=== PATIENT | male | born 1990 | race American Indian/Alaskan Native ===

== ENCOUNTER 2016-12-11 20:12 | Emergency (ER) | payer OTHER ==
[2016-12-11 21:22] LABS: Basophils % (Auto) 0.7 % (0.0-1.8); Eosinophils % (Auto) 0.5 % (0.0-4.3); Hematocrit 47.5 % (35.5-45.6); Hemoglobin 15.1 gm/dl (11.8-15.2); Mean Corpuscular HGB Conc 32 % (32-34); Mean Corpuscular Hemoglobin 27 pg (28-32); Mean Corpuscular Volume 85 fl (84-94); Platelet Count 234 K/mm3 (140-440); Red Blood Count 5.57 M/mm3 (3.65-5.03); Red Cell Distribution Width 14.6 % (13.2-15.2); White Blood Count 9.6 K/mm3 (4.5-11.0)
[2016-12-11 21:52] LABS: Alanine Aminotransferase 28 units/L (7-56); Albumin 4.4 g/dL (3.9-5); Albumin/Globulin Ratio 1.5 %; Alkaline Phosphatase 51 units/L (35-129); Anion Gap 19 mmol/L; BUN/Creatinine Ratio 10; Blood Urea Nitrogen 9 mg/dL (9-20); Calcium 8.7 mg/dL (8.4-10.2); Carbon Dioxide 27 mmol/L (22-30); Chloride 109.2 mmol/L (98-107); Glucose 87 mg/dL (75-100); Potassium 4.8 mmol/L (3.6-5.0); Sodium 150 mmol/L (137-145); Total Protein 7.4 g/dL (6.3-8.2)
--- NOTE | 2016-12-11 22:08 | Emergency Department Report ---
History of Present Illness - General Chief Complaint: Overdose Stated Complaint: POSS OD Time Seen by Provider: 12/11/16 20:36 Source: family, EMS Mode of arrival: Ambulatory Limitations: Altered Mental Status - History of Present Illness Initial Comments: 26-year-old male with a past medical history alcohol abuse, bipolar disorder, and anger issues presents to the hospital with suicidal overdose attempt. Patient has been drinking beer all day. His girlfriend witnessed him ingesting 20 of her 1 mg clonazepam tablets at 5 PM. Patient is angry since he arrived and intermittently uncooperative with staff. Patient threatened to leave the ED repeatedly and adamant about not staying in the hospital. He is not forthcoming with history therefore information obtained from his girlfriend at the bedside. She reports he's been depressed lately. His grandmother recently . They recently broke up, and patient was diagnosed with lung cancer 2 days ago after workup at a hospital in [place]. Patient is supposed to follow-up tomorrow for further instructions regarding this diagnosis and workup. She states patient is not on any medication currently. He drinks alcohol daily with history of withdrawal tremors but no reports of seizures. - Related Data Allergies Allergy/AdvReac Type Severity Reaction Status Date / Time No Known Allergies Allergy Unverified 12/11/16 20:58 ED Review of Systems ROS: Stated complaint: POSS OD Other details as noted in HPI Comment: Unobtainable due to pts medical conditions (lack of patient cooperation) ED Physical Exam - General Limitations: Altered Mental Status - Other Other exam information: General: No limitations, patient is alert in no acute distress Head exam: Atraumatic, normocephalic Eyes exam: Normal appearance. ENT: Moist mucous membrane, normal oropharynx Neck exam: Normal inspection, full range of motion, no meningismus nontender Respiratory exam: Clear to auscultation bilateral, no wheezes, rales, crackles Cardiovascular: Normal rate and rhythm, normal heart sounds Abdomen: Soft, nondistended, and nontender, with normal bowel sounds, no rebound, or guarding Extremity: Full range of motion normal inspection no deformity Back: Normal Inspection, full range of motion, no tenderness Neurologic: Alert, oriented x3, cranial nerves intact, no motor or sensory deficit Psychiatric: Angry mood, belligerent Skin: Superficial right brow 0.5 cm laceration. Wound cleaned and Steri-Strips placed by ENGINEERED WOOD DESIGNER Course Vital Signs 12/11/16 12/11/16 12/12/16 20:36 20:46 00:00 Temperature 98 F 98.8 F Pulse Rate 69 70 67 Respiratory 16 18 17 Rate Blood Pressure 117/73 98/41 [Right] O2 Sat by Pulse 99 97 Oximetry 12/12/16 12/12/16 12/12/16 01:23 02:00 03:00 Temperature 98.8 F Pulse Rate 70 65 63 Respiratory 18 18 20 Rate Blood Pressure 117/73 97/44 100/43 [Right] O2 Sat by Pulse 99 95 Oximetry 12/12/16 04:00 Temperature Pulse Rate 63 Respiratory 19 Rate Blood Pressure 92/46 [Right] O2 Sat by Pulse 96 Oximetry - Consultations Consultation #1: 12/11/16 20:50 RN discussed case with poison control discussion copy and pasted below Per poison control pt to have a cbc, cmp, asa, tylenol (repeat in 4 hours), tox screen, etoh, ekg, and cardiac monitoring for 6 hours. if pt is stable, he my be d/c'd and medically cleared after the 6 hours. pt is not to have haldol, geodon or zyprexa d/t risk of seizures. Romazicon only to be given if pt does not have hx of chronic benzo use. ED Medical Decision Making - Lab Data Result diagrams: 12/11/16 21:07 12/11/16 21:07 Lab Results 12/11/16 12/11/16 12/11/16 Range/Units 21:07 21:07 21:07 WBC 9.6 (4.5-11.0) K/mm3 RBC 5.57 H (3.65-5.03) M/mm3 Hgb 15.1 (11.8-15.2) gm/dl Hct 47.5 H (35.5-45.6) % MCV 85 (84-94) fl MCH 27 L (28-32) pg MCHC 32 (32-34) % RDW 14.6 (13.2-15.2) % Plt Count 234 (140-440) K/mm3 Lymph % (Auto) 25.7 (13.4-35.0) % [place] % (Auto) 4.9 (0.0-7.3) % Eos % (Auto) 0.5 (0.0-4.3) % Baso % (Auto) 0.7 (0.0-1.8) % Lymph # 2.5 (1.2-5.4) K/mm3 [place] # 0.5 (0.0-0.8) K/mm3 Eos # 0.0 (0.0-0.4) K/mm3 Baso # 0.1 (0.0-0.1) K/mm3 Seg Neutrophils % 68.2 (40.0-70.0) % Seg Neutrophils # 6.5 (1.8-7.7) K/mm3 Sodium 150 H (137-145) mmol/L Potassium 4.8 (3.6-5.0) mmol/L Chloride 109.2 H (98-107) mmol/L Carbon Dioxide 27 (22-30) mmol/L Anion Gap 19 mmol/L BUN 9 (9-20) mg/dL Creatinine 0.9 (0.8-1.5) mg/dL Estimated GFR > 60 ml/min BUN/Creatinine Ratio 10 % Glucose 87 (75-100) mg/dL POC Glucose (70-105) Calcium 8.7 (8.4-10.2) mg/dL Total Bilirubin 0.30 (0.1-1.2) mg/dL AST 44 H (5-40) units/L ALT 28 (7-56) units/L Alkaline Phosphatase 51 (35-129) units/L Total Creatine Kinase (55-170) units/L Total Protein 7.4 (6.3-8.2) g/dL Albumin 4.4 (3.9-5) g/dL Albumin/Globulin Ratio 1.5 % Urine Color (Yellow) Urine Turbidity (Clear) Urine pH (5.0-7.0) Ur Specific [place] (1.003-1.030) Urine Protein (Negative) mg/dL Urine Glucose (UA) (Negative) mg/dL Urine Ketones (Negative) mg/dL Urine Blood (Negative) Urine Nitrite (Negative) Urine Bilirubin (Negative) Urine Urobilinogen (<2.0) mg/dL Ur Leukocyte Esterase (Negative) Urine WBC (Auto) (0.0-6.0) /HPF Urine RBC (Auto) (0.0-6.0) /HPF Urine Mucus /HPF Salicylates < 0.3 L (2.8-20.0) mg/dL Urine Opiates Screen Urine Methadone Screen Acetaminophen (10.0-30.0) ug/mL Ur Barbiturates Screen Ur Phencyclidine Scrn Ur Amphetamines Screen U Benzodiazepines Scrn Urine Cocaine Screen U Marijuana (THC) Screen Drugs of Abuse Note Plasma/Serum Alcohol (0-0.07) gm% 12/11/16 12/11/16 12/11/16 Range/Units 21:07 21:07 21:59 WBC (4.5-11.0) K/mm3 RBC (3.65-5.03) M/mm3 Hgb (11.8-15.2) gm/dl Hct (35.5-45.6) % MCV (84-94) fl MCH (28-32) pg MCHC (32-34) % RDW (13.2-15.2) % Plt Count (140-440) K/mm3 Lymph % (Auto) (13.4-35.0) % [place] % (Auto) (0.0-7.3) % Eos % (Auto) (0.0-4.3) % Baso % (Auto) (0.0-1.8) % Lymph # (1.2-5.4) K/mm3 [place] # (0.0-0.8) K/mm3 Eos # (0.0-0.4) K/mm3 Baso # (0.0-0.1) K/mm3 Seg Neutrophils % (40.0-70.0) % Seg Neutrophils # (1.8-7.7) K/mm3 Sodium (137-145) mmol/L Potassium (3.6-5.0) mmol/L Chloride (98-107) mmol/L Carbon Dioxide (22-30) mmol/L Anion Gap mmol/L BUN (9-20) mg/dL Creatinine (0.8-1.5) mg/dL Estimated GFR ml/min BUN/Creatinine Ratio % Glucose (75-100) mg/dL POC Glucose 78 (70-105) Calcium (8.4-10.2) mg/dL Total Bilirubin (0.1-1.2) mg/dL AST (5-40) units/L ALT (7-56) units/L Alkaline Phosphatase (35-129) units/L Total Creatine Kinase (55-170) units/L Total Protein (6.3-8.2) g/dL Albumin (3.9-5) g/dL Albumin/Globulin Ratio % Urine Color (Yellow) Urine Turbidity (Clear) Urine pH (5.0-7.0) Ur Specific [place] (1.003-1.030) Urine Protein (Negative) mg/dL Urine Glucose (UA) (Negative) mg/dL Urine Ketones (Negative) mg/dL Urine Blood (Negative) Urine Nitrite (Negative) Urine Bilirubin (Negative) Urine Urobilinogen (<2.0) mg/dL Ur Leukocyte Esterase (Negative) Urine WBC (Auto) (0.0-6.0) /HPF Urine RBC (Auto) (0.0-6.0) /HPF Urine Mucus /HPF Salicylates (2.8-20.0) mg/dL Urine Opiates Screen Urine Methadone Screen Acetaminophen < 15.0 (10.0-30.0) ug/mL Ur Barbiturates Screen Ur Phencyclidine Scrn Ur Amphetamines Screen U Benzodiazepines Scrn Urine Cocaine Screen U Marijuana (THC) Screen Drugs of Abuse Note Plasma/Serum Alcohol 0.19 H (0-0.07) gm% 12/11/16 12/11/16 12/12/16 Range/Units 23:30 23:30 01:33 WBC (4.5-11.0) K/mm3 RBC (3.65-5.03) M/mm3 Hgb (11.8-15.2) gm/dl Hct (35.5-45.6) % MCV (84-94) fl MCH (28-32) pg MCHC (32-34) % RDW (13.2-15.2) % Plt Count (140-440) K/mm3 Lymph % (Auto) (13.4-35.0) % [place] % (Auto) (0.0-7.3) % Eos % (Auto) (0.0-4.3) % Baso % (Auto) (0.0-1.8) % Lymph # (1.2-5.4) K/mm3 [place] # (0.0-0.8) K/mm3 Eos # (0.0-0.4) K/mm3 Baso # (0.0-0.1) K/mm3 Seg Neutrophils % (40.0-70.0) % Seg Neutrophils # (1.8-7.7) K/mm3 Sodium (137-145) mmol/L Potassium (3.6-5.0) mmol/L Chloride (98-107) mmol/L Carbon Dioxide (22-30) mmol/L Anion Gap mmol/L BUN (9-20) mg/dL Creatinine (0.8-1.5) mg/dL Estimated GFR ml/min BUN/Creatinine Ratio % Glucose (75-100) mg/dL POC Glucose (70-105) Calcium (8.4-10.2) mg/dL Total Bilirubin (0.1-1.2) mg/dL AST (5-40) units/L ALT (7-56) units/L Alkaline Phosphatase (35-129) units/L Total Creatine Kinase 754 H (55-170) units/L Total Protein (6.3-8.2) g/dL Albumin (3.9-5) g/dL Albumin/Globulin Ratio % Urine Color Straw (Yellow) Urine Turbidity Clear (Clear) Urine pH 5.0 (5.0-7.0) Ur Specific [place] 1.013 (1.003-1.030) Urine Protein <15 mg/dl (Negative) mg/dL Urine Glucose (UA) Neg (Negative) mg/dL Urine Ketones Neg (Negative) mg/dL Urine Blood Neg (Negative) Urine Nitrite Neg (Negative) Urine Bilirubin Neg (Negative) Urine Urobilinogen < 2.0 (<2.0) mg/dL Ur Leukocyte Esterase Neg (Negative) Urine WBC (Auto) < 1.0 (0.0-6.0) /HPF Urine RBC (Auto) < 1.0 (0.0-6.0) /HPF Urine Mucus Few /HPF Salicylates (2.8-20.0) mg/dL Urine Opiates Screen Presumptive negative Urine Methadone Screen Presumptive negative Acetaminophen (10.0-30.0) ug/mL Ur Barbiturates Screen Presumptive negative Ur Phencyclidine Scrn Presumptive negative Ur Amphetamines Screen Presumptive negative U Benzodiazepines Scrn Presumptive positive Urine Cocaine Screen Presumptive positive U Marijuana (THC) Screen Presumptive negative Drugs of Abuse Note Disclamer Plasma/Serum Alcohol (0-0.07) gm% 12/12/16 Range/Units 05:13 WBC (4.5-11.0) K/mm3 RBC (3.65-5.03) M/mm3 Hgb (11.8-15.2) gm/dl Hct (35.5-45.6) % MCV (84-94) fl MCH (28-32) pg MCHC (32-34) % RDW (13.2-15.2) % Plt Count (140-440) K/mm3 Lymph % (Auto) (13.4-35.0) % [place] % (Auto) (0.0-7.3) % Eos % (Auto) (0.0-4.3) % Baso % (Auto) (0.0-1.8) % Lymph # (1.2-5.4) K/mm3 [place] # (0.0-0.8) K/mm3 Eos # (0.0-0.4) K/mm3 Baso # (0.0-0.1) K/mm3 Seg Neutrophils % (40.0-70.0) % Seg Neutrophils # (1.8-7.7) K/mm3 Sodium (137-145) mmol/L Potassium (3.6-5.0) mmol/L Chloride (98-107) mmol/L Carbon Dioxide (22-30) mmol/L Anion Gap mmol/L BUN (9-20) mg/dL Creatinine (0.8-1.5) mg/dL Estimated GFR ml/min BUN/Creatinine Ratio % Glucose (75-100) mg/dL POC Glucose (70-105) Calcium (8.4-10.2) mg/dL Total Bilirubin (0.1-1.2) mg/dL AST (5-40) units/L ALT (7-56) units/L Alkaline Phosphatase (35-129) units/L Total Creatine Kinase (55-170) units/L Total Protein (6.3-8.2) g/dL Albumin (3.9-5) g/dL Albumin/Globulin Ratio % Urine Color (Yellow) Urine Turbidity (Clear) Urine pH (5.0-7.0) Ur Specific [place] (1.003-1.030) Urine Protein (Negative) mg/dL Urine Glucose (UA) (Negative) mg/dL Urine Ketones (Negative) mg/dL Urine Blood (Negative) Urine Nitrite (Negative) Urine Bilirubin (Negative) Urine Urobilinogen (<2.0) mg/dL Ur Leukocyte Esterase (Negative) Urine WBC (Auto) (0.0-6.0) /HPF Urine RBC (Auto) (0.0-6.0) /HPF Urine Mucus /HPF Salicylates (2.8-20.0) mg/dL Urine Opiates Screen Urine Methadone Screen Acetaminophen < 15.0 (10.0-30.0) ug/mL Ur Barbiturates Screen Ur Phencyclidine Scrn Ur Amphetamines Screen U Benzodiazepines Scrn Urine Cocaine Screen U Marijuana (THC) Screen Drugs of Abuse Note Plasma/Serum Alcohol (0-0.07) gm% - EKG Data -: EKG Interpreted by Me (sinus rate [address] elevation or T-wave inversions) - EKG Data When compared to previous EKG there are: previous EKG unavailable - Radiology Data Radiology results: report reviewed (chest x-ray: No acute findings) - Medical Decision Making Patient's initial Tylenol level was performed approximate 4 hours after reported injection and is normal. Repeat has been ordered by ingestion of Klonopin was witnessed by girlfriend and no other substance ingestion reported. Patient has been monitored for 6 hours and did have some hypotension but also IV benzos here in the ED, Benadryl, and required physical restraints for cooperation. Patient received banana bag and normal saline with improvement in blood pressure. Patient has a history of daily alcohol use and is at risk for alcohol withdrawal. While at rest patient's blood pressures in the 90s. Pt arrouses easily and seems to be more cooperative. after completion of 1 L normal systolic pressure is 102 and patient is medically cleared. - Differential Diagnosis suicidal attempt, depression, psychosis, alcohol intoxication, drug abuse Critical Care Time: No Critical care attestation.: If time is entered above; I have spent that time in minutes in the direct care of this critically ill patient, excluding procedure time. ED Disposition Clinical Impression: Alcohol abuse, Suicide attempt by substance overdose, Cocaine abuse, Medical clearance for psychiatric admission, Laceration of right eyebrow Disposition: [id number]/[id number] PSY HOSP/PSY UNIT Is pt being admited?: No Condition: Stable Time of Disposition: 06:12 (awaiting acceptance)
[2016-12-11] MEDS ORDERED: BENADRYL IV ONE (22:33)
[2016-12-11] MEDS ORDERED: ATIVAN IV ONE (22:33)
[2016-12-11] MEDS ORDERED: VITAMIN B-1 100 MG, FOLVITE 1 MG, INFUVITE 10 ML in NACL 0.9% 1000 ML 1,000 ML IV ONE (22:33)
--- NOTE | 2016-12-11 23:20 | XRay Report ---
FINAL REPORT PROCEDURE: XR CHEST ROUTINE 2V TECHNIQUE: PA and lateral chest radiographs were obtained. CPT 93356 HISTORY: recent diagnosis of lung cancer. Patient's girlfriend stated patient diagnosed w/ lung cancer x 2 days. COMPARISON: No prior studies are available for comparison. FINDINGS: Heart: Normal. Mediastinum/Vessels: Normal. Lungs/Pleural space: Normal. Bony thorax: No acute osseous abnormality. Other: IMPRESSION: No acute cardiopulmonary disease. Recommend correlation with prior exams .
[2016-12-12 00:45] LABS: Urine Drugs of Abuse Note Disclamer
[2016-12-12 01:04] LABS: Bilirubin,Urine NEG (Negative); Blood,Urine NEG (Negative); Ketones,Urine NEG (Negative); Leukocyte Esterase,Urine NEG (Negative); Mucus,Urine FEW /HPF; Nitrite,Urine NEG (Negative); Protein,Urine <15 mg/dL mg/dL (Negative); RBC,Urine < 1.0 /HPF (0.0-6.0); Urobilinogen,Urine < 2.0 mg/dL (<2.0); WBC,Urine < 1.0 /HPF (0.0-6.0)
[2016-12-12] MEDS ORDERED: NACL 0.9% 1000 ML 1,000 ML IV ONE ×2 (03:14→06:10)
[2016-12-12] MEDS ORDERED: BOOSTRIX IM ONE (05:26)
[2016-12-12] MEDS ORDERED: MOTRIN PO ONE (09:04)
--- NOTE | 2016-12-12 13:52 | Consultation ---
History of Present Illness - Reason for Consult Consult date: 12/12/16 Reason for consult: Mental Health Evaluation Requesting physician: BERTO DUNNE - Chief Complaint Chief complaint: "I want to go home" - History of Present Psychiatric Illness 26-year-old male with a past medical history alcohol abuse, bipolar disorder, and anger issues presents to the hospital with suicidal overdose attempt. Today patient is irritable and uncooperative during the assessment. He kept asking about going home and denying a suicide attempt. He did admit to taking multiple Klonopin pills prior to his admission to [facility]. He stated that he was "stressed. " He stated that his girlfriend broke up with him and his grandmother recently. He would not discuss his elevated alcohol serum. He stated being hospitalized several times for depression in [place]. He denies SI/HI's. After several attempts to discuss his current overdose, the patient refused to answer anymore questions. Patient's alcohol serum 0.19 and positive for cocaine and benzos. Medications and Allergies Allergies Allergy/AdvReac Type Severity Reaction Status Date / Time No Known Allergies Allergy Unverified 12/11/16 20:58 Home Medications Medication Instructions Recorded Confirmed Last Taken Type No Known Home Medications [No 12/13/16 12/13/16 Unknown History Reported Home Medications] Past psychiatric history - Past Medical History Past Medical History: No medical history Past Surgical History: No surgical history - past Psychiatric treatment and history Psych: Depression psychiatric treatment history: Multiple inpatient psy settings. Denies a fam psy hx. - Social History Social history: lives with family, other ([employer] graduate) Mental Status Exam - Vital signs Last Vital Signs Temp 98.8 F 12/12/16 01:23 Pulse 75 12/12/16 08:00 Resp 18 12/12/16 09:32 BP 95/53 12/12/16 08:00 Pulse Ox 99 12/12/16 09:32 - Exam Narrative exam: MSE: Appearance: irritable, uncooperative Behavior: regular eye contact Speech: regular rate and tone Mood: "okay" withdrawn Affect: labile Thought Process: circumstantial Thought Content: denies SI/HI's and AVH's Motor Activity: lying in bed Cognition: A/O x3 Insight: variable Judgment: variable Results Result Diagrams: 12/11/16 21:07 12/11/16 21:07 Abnormal lab results 12/11/16 12/11/16 12/11/16 Range/Units 21:07 21:07 21:07 RBC 5.57 H (3.65-5.03) M/mm3 Hct 47.5 H (35.5-45.6) % MCH 27 L (28-32) pg Sodium 150 H (137-145) mmol/L Chloride 109.2 H (98-107) mmol/L AST 44 H (5-40) units/L Total Creatine Kinase (55-170) units/L Salicylates < 0.3 L (2.8-20.0) mg/dL Plasma/Serum Alcohol (0-0.07) gm% 12/11/16 12/12/16 Range/Units 21:07 01:33 RBC (3.65-5.03) M/mm3 Hct (35.5-45.6) % MCH (28-32) pg Sodium (137-145) mmol/L Chloride (98-107) mmol/L AST (5-40) units/L Total Creatine Kinase 754 H (55-170) units/L Salicylates (2.8-20.0) mg/dL Plasma/Serum Alcohol 0.19 H (0-0.07) gm% All other labs normal. Assessment and Plan Assessment and plan: Impression: Historical Dx: Depression. Unspecified Mood DO. Alcohol Use DO. Substance Use DO (cocaine). Today patient is irritable and uncooperative during the assessment. Patient overdosed on Klonopin. Positive for cocaine and benzos. DDx: R/O Bipolar, MDD, Substance Induced Mood DO Recommendation/plan: Continue 1013 with placement to inpatient psy services. Gather collateral information to help determine proper treatment.
--- NOTE | 2016-12-13 15:53 | Progress Note ---
Subjective - Reason for Consult Reason for consult: recent OD - Chief Complaint Chief complaint: Still minimizing his recent situation. Requesting to go home. Collateral info and review of chart suggests that he requires some coordinated treatment, which hasn't been established yet. He is denying symptoms of psychosis or depression; however, recent presentation suggests otherwise. Denies SI currently. Denies that the recent OD was in an attempt to end his life. Mental Status Exam - Vital signs Last Vital Signs Temp 97.7 F 12/13/16 10:16 Pulse 66 12/13/16 10:16 Resp 18 12/13/16 10:16 BP 108/61 12/13/16 10:16 Pulse Ox 100 12/13/16 10:16 - Exam Orientation: time, place Affect: anxious Mood: anxious Thought content: other (NO SI/HI/AVH) Thought Process: Intact Perceptions: none Speech: normal rate and pattern Concentration: focused Motor activity: normal Level of consciousness: alert Memory: Intact Sleep Symptoms: None Interaction: guarded Assessment and Plan Recent Overdose on a benzodiazapine with +UDS for various illicit substance and an elevated BAL in the context of loss of GM as well as a possible Lung Cancer diagnosis. Plan: Coordinate mental health services to ensure he can get help for the loss and cope more effectively with the recent reported diagnosis of Lung Cancer. This may involve him going inpatient v coordinating outpatient services in his community. Current he will remain on a 1013 until that is completed.
--- NOTE | 2016-12-14 10:39 | Progress Note ---
Subjective - Reason for Consult Consult date: 12/14/16 Reason for consult: Psychiatry Follow-up - Chief Complaint Chief complaint: "I want to go home" 26-year-old male with a past medical history alcohol abuse and depression. Today patient is calm and cooperative during the assessment. He denies having lung cancer and stated that his grandmother didn't . He stated that a older woman from a halfway in [place] . He stated they had a close relationship. The patient does not want to take any medication at this time. Per collateral information from his sister Kimmy Lai [phone], she stated that her brother does not have lung cancer and both of their grandmothers are still living. She stated that her brother have attempted suicide multiple times in the past by overdosing. She stated that he was dx with depression a couple yrs ago, but could not ID medications the patient have taking in the past. The patient denies SI/HI's and AVH's. Mental Status Exam - Vital signs Last Vital Signs Temp 98.0 F 12/13/16 22:00 Pulse 70 12/13/16 22:00 Resp 18 12/13/16 22:00 BP 110/64 12/13/16 22:00 Pulse Ox 98 12/13/16 22:00 - Exam Narrative exam: MSE: Appearance: calm, cooperative Behavior: regular eye contact Speech: regular rate and tone Mood: "okay" withdrawn Affect: dysphoric Thought Process: circumstantial Thought Content: denies SI/HI's and AVH's Motor Activity: lying in bed Cognition: A/O x3 Insight: variable Judgment: variable Assessment and Plan Impression: Historical Dx: Depression. Unspecified Mood DO. Alcohol Use DO. Substance Use DO (cocaine). Today patient calm and cooperative during the assessment. Patient overdosed on Klonopin. Positive for cocaine and benzos. Patient minimizes his actions prior to his admission to [facility]. DDx: R/O Bipolar, MDD, Substance Induced Mood DO Recommendation/plan: Continue 1013 with placement to inpatient psy services. Discussed the risk/benefits of antidepressants with patient. Patient does not want to take medication at this time.
--- NOTE | 2016-12-15 12:55 | Progress Note ---
Subjective - Reason for Consult Consult date: 12/15/16 Reason for consult: Psychiatry Follow-up - Chief Complaint Chief complaint: "Can I leave today" 26-year-old male with a past medical history alcohol abuse and depression. Today patient is calm and cooperative during the assessment. He stated that he took Zoloft in the past for depression. He stated that he did "well" on the medication. He stated that he stopped taking Zoloft because he didn't have insurance anymore, so he could not fill his prescription. He was forth coming about why he took the Klonopin pills. He stated that he been dealing with some life stressors (unemployment, illicit drug use, and alcohol addiction). He stated that he would like some help with his issues, possibly rehab services once discharged. He denies SI/HI's and AVH's. He stated that he would like to start taking Zoloft. Mental Status Exam - Vital signs Last Vital Signs Temp 98.8 F 12/15/16 11:25 Pulse 63 12/15/16 11:25 Resp 18 12/15/16 11:25 BP 115/66 12/15/16 11:25 Pulse Ox 98 12/15/16 11:25 - Exam Narrative exam: MSE: Appearance: calm, cooperative Behavior: regular eye contact Speech: regular rate and tone Mood: "okay" Affect: flat Thought Process: circumstantial Thought Content: denies SI/HI's and AVH's Motor Activity: lying in bed Cognition: A/O x3 Insight: variable Judgment: variable Assessment and Plan Impression: Historical Dx: Depression. Unspecified Mood DO. Alcohol Use DO. Substance Use DO (cocaine). Today patient calm and cooperative during the assessment. Patient overdosed on Klonopin. Positive for cocaine and benzos. DDx: R/O Bipolar, MDD, Substance Induced Mood DO Recommendation/plan: Continue 1013 with placement to inpatient psy services. Start Zoloft 50 mg PO daily for depression/mood. Discussed possible suicidality/ medication induced lesley with patient reference Zoloft.
[2016-12-15] MEDS ORDERED: ZOLOFT PO SCH (13:00)
[2016-12-15 20:10] VITALS: BP 132/73
== END 2016-12-16 08:05 ==
LOC: EEVIPCON 20:12 → ED 20:12
DX: T42.4X2A Poisoning by benzodiazepines, intentional self-harm, initial encounter (principal); F10.10 Alcohol abuse, uncomplicated; F14.10 Cocaine abuse, uncomplicated; S01.111A Laceration without foreign body of right eyelid and periocular area, initial encounter; X58.XXXA Exposure to other specified factors, initial encounter; Y93.9 Activity, unspecified; Y99.9 Unspecified external cause status; Y92.9 Unspecified place or not applicable
CPT/HCPCS: 36415; 71020; 80053; 80307; 81001; 82550; 82962; 85025; 90471; 90715; 93005; 93010; 96361; 96365; 96366; 96375; 99285; G0480; J1200; J2060; J3411; J7030; 80320